=== PATIENT | male | born 1985 | race Asian ===

== ENCOUNTER 2020-02-15 12:11 | Emergency (ER) | payer BC ==
[~2020-02-15] VITALS: Ht 167.6 cm; Wt 68.0 kg
[2020-02-15 12:18] VITALS: BP 151/93
--- NOTE | 2020-02-15 12:19 | NUR ---
ED Nurse Note: pt ambulated to ed c/o left dorsal laceration s/p extracurricular activities with saw and wood choppiong. site actively bleeding. pt reports he has not had any shots since he was 19 denies TDAP vaccine.
[2020-02-15] MEDS ORDERED: Tetanus/Diptheria/Pertussis IM ONE (12:30)
[2020-02-15] MEDS ORDERED: Lidocaine 2% 20mg/ml/EPI 0.01mg/ml 20ml INJ ONE (12:30)
[2020-02-15] MEDS ORDERED: Bacitracin Oint UD TOPIC ONE (12:30)
--- NOTE | 2020-02-15 13:15 | Emergency Room Report ---
History of Present Illness General Chief Complaint: Laceration Source: Patient Present Illness HPI 34-year-old male presents to the emergency department complaining of 6 out of 10 severity pain localized to the left hand x1 hour. Patient reports he was using an angle ink grinder when he accidentally/unintentionally hit his left hand. Patient reports he is right-hand dominant. Patient denies taking blood thinning medications. He is not sure when his last tetanus vaccine was. Patient denies paresthesias or loss of gross motor movements of the affected extremity. No other aggravating or relieving factors. Patient states has not taken any medications prior to arrival. Allergies: Coded Allergies: No Known Allergies (Unverified , 02/15/20) COVID-19 Screening Contact w/high risk pt: No Experienced COVID-19 symptoms?: No COVID-19 Testing performed COUNT ROOM CLERK: No Patient History Past Medical History: see triage record Past Surgical History: none Pertinent Family History: none Reviewed Nursing Documentation: PMH: Agreed; PSxH: Agreed Nursing Documentation-PMH Past Medical History: No Stated History Review of Systems All Other Systems: negative except mentioned in HPI Physical Exam Vital Signs Date Time Temp Pulse Resp B/P (MAP) Pulse Ox O2 Delivery O2 Flow Rate FiO2 02/15/20 12:13 97.5 122 16 151/93 (112) 100 Room Air Sp02 EP Interpretation: reviewed, normal General Appearance: no apparent distress, alert, GCS 15, non-toxic Head: normocephalic, atraumatic Eyes: bilateral eye normal inspection, bilateral eye PERRL ENT: hearing grossly normal, normal voice Neck: full range of motion Respiratory: chest non-tender, lungs clear, normal breath sounds, speaking full sentences Cardiovascular #1: regular rate, rhythm, normal capillary refill Musculoskeletal: back normal, normal range of motion, gait/station normal, non- tender Neurologic: alert, motor strength/tone normal, oriented x3, sensory intact, responsive, speech normal Psychiatric: judgement/insight normal Skin: laceration - Dorsal Left hand laceration approx 2 cm in length Lymphatic: no adenopathy Procedures Laceration/Wound Repair Laceration/Wound Repair : Consent: Verbal Wound Location: upper extremity - Left hand Wound's Depth, Shape: linear Wound Length (cm): 2 Wound Explored: clean Irrigated w/ Saline (ccs): 200 Anesthesia: Lidocaine w/ Epi Volume Anesthetic (ccs): 2 Wound Repaired With: sutures Suture Size/Type: 4:0 Number of Sutures: 3 Layer Closure?: No Sterile Dressing Applied?: Yes Splint Applied?: Yes - Left hand splint Type of Splint Applied: volar left hand splint Sling Applied?: Yes Patient Tolerated: Well Complications: None Medical Decision Making PA Attestation Dr. Guerrero is my supervising physician whom patient care and management has been discussed with. Diagnostic Impression: Primary Impression: Laceration ER Course 34-year-old male presents to the emergency department complaining of 6 out of 10 severity pain localized to the left hand x1 hour. Patient reports he was using an angle ink grinder when he accidentally/unintentionally hit his left hand. Patient reports he is right-hand dominant. Patient denies taking blood thinning medications. He is not sure when his last tetanus vaccine was. Patient denies paresthesias or loss of gross motor movements of the affected extremity. No other aggravating or relieving factors. Patient states has not taken any medications prior to arrival. Ddx considered but are not limited to laceration, tendon injury, cellulitis, amputation Vital signs: are WNL, pt. is afebrile. H&PE are most consistent with: Dorsal Left hand laceration approx 2 cm in length ORDERS: none required at this time, the diagnosis is clinical ED INTERVENTIONS: - Tetanus vaccine was administered as pt. vaccination status was unknown. - The wound was copiously irrigated with normal saline, and explored for foreign body for which no FB was found. - pt. is anesthetized with 1%lidocaine w. epi. 2cc - The wound was approximated and closed using 3 interrupted 4.0 Ethilon sutures. - Bacitracin and sterile dressing is applied. --- Initially pt. did not want splint. however he kept using and moving his left hand that the wound began bleeding with the sutures intact. d/w pt. that the splint is necessary. Direct pressure was applied until hemostasis was reached. -Left Hand Splint applied by ED RN. Pt. remains neurovascularly intact. - Left arm Sling applied by ED RN. Pt. remains neurovascularly intact. Discussed with patient: That we make every effort to approximate the laceration as best as we can so that scarring will be as cosmetically pleasing as possible with our limited cosmetic skill set in the Emergency dept. Regardless of our best efforts there will be scarring after laceration repair. The extent of scarring is unknown at this time. DISCHARGE: At this time pt. is stable for d/c to home. Will provide printed patient care instructions, and any necessary prescriptions. Care plan and follow up instructions have been discussed with the patient prior to discharge. Last Vital Signs Date Time Temp Pulse Resp B/P (MAP) Pulse Ox O2 Delivery O2 Flow Rate FiO2 02/15/20 12:18 97.5 122 16 151/93 100 Room Air Status: improved Disposition: HOME, SELF-CARE Condition: Stable Scripts Bacitracin Zinc Micronized (BACITRACIN ZINC) 1 Gm Powder 1 APPLIC TOPIC BID, #28.3 GM Prov: Rupali Nevarez 02/15/20 Cephalexin* (KEFLEX*) 500 Mg Capsule 500 MG ORAL EVERY 12 HOURS for 7 Days, #14 CAP 0 Refills Prov: Rupali Nevarez 02/15/20 Patient Instructions: Laceration Care, Adult Additional Instructions: SUTURES TO BE REMOVED IN 10 DAYS LIMITED USE OF LEFT HAND TO PROMOTE PROPER HEALING. Rupali Nevarez Feb 15, 2020 13:15
[2020-02-15] MEDS ORDERED: CEPHALEXIN500 MG ORAL (13:21)
[2020-02-15] MEDS ORDERED: BACITRACIN ZINC1 GM TOPIC (13:21)
--- NOTE | 2020-02-15 14:00 | NUR ---
ED Nurse Note: Pt was playing with sutures and began bleeding from site. PA notified. Pt educated about wound care. Site redressed.
[2020-02-15 14:16] VITALS: BP 142/90
--- NOTE | 2020-02-15 14:17 | NUR ---
ER DISCHARGE NOTE: Patient is cleared to be discharged per ERMD, pt is aox4, on room air, with stable vital signs. pt was given dc and prescription instructions, pt was able to verbalize understanding, pt id band removed. pt is able to ambulate with steady gait. pt took all belongings. Gauze, Sling and splint applied to R arm. Pt educated regarding laceration care and f/u and prescriptions.
== END 2020-02-15 14:20 | disposition home or self-care (01) ==
LOC: EMR 12:50
DX: S61.412A Laceration without foreign body of left hand, initial encounter (principal); W27.4XXA Contact with kitchen utensil, initial encounter; Y92.9 Unspecified place or not applicable; Z23 Encounter for immunization
CPT/HCPCS: 90471; 90715; 99283